=== PATIENT | male | born 1960 | race Caucasian/White ===

== ENCOUNTER 2016-09-13 13:27 | Observation (INO) | payer OTHER ==
[~2016-09-13] VITALS: Ht 180.3 cm; Wt 72.1 kg
[2016-09-13] MEDS: SODIUM CHLOR 0.9% 1000 ML INJ 1,000 ML IV SCH (01:40)
[~2016-09-13 13:27] MED LIST: ONDANSETRON HCL 4 MG/2 ML VIAL IV PUSH ONE; PROPOFOL 200 MG/20 ML AMP IV ONE; ePHEDrine/NS 25 MG/5 ML SYR IV ONE
[2016-09-13 13:28] VITALS: BP 127/65; PULSE 52; RESP 14; TEMP 98.2; O2SAT 100
--- NOTE | 2016-09-13 13:41 | PD ---
Physical Exam Time Seen by Provider: 13:40 Narrative 56 y/o male here for evaluation of L 3rd finger pain swelling which started 3 days ago, seen at [facility] yesterday and told that he may have a " tendon infection" and he was advised to come here to see a hand surgeon. Vital signs reviewed. Seen at triage desk. Awaiting bed placement. Data Data Last Documented VS Vital Signs Date Time Temp Pulse Resp B/P Pulse Ox O2 Delivery O2 Flow Rate FiO2 09/13/16 13:28 98.2 52 14 127/65 100 MDM Medical Record Reviewed: Yes Supervised Visit with MCKENNA: Julián Armenta Sep 13, 2016 13:41
[2016-09-13] MEDS ORDERED: CLIN1CAP6 PO (14:13)
[2016-09-13] MEDS ORDERED: KETO10 PO (14:13)
[2016-09-13] MEDS ORDERED: SODIUM CHLORIDE 0.9% FLUSH 10 ML FLUSH IVF PRN (14:30)
--- NOTE | 2016-09-13 14:33 | PD ---
HPI Chief Complaint: Injury Time Seen by Provider: 14:11 Travel History International Travel<30 days: No Contact w/Intl Traveler<30days: No Traveled to known affect area: No PFSH Past Medical History Medical History: Denies Significant Hx Past Surgical History Tonsillectomy: Yes Social History Alcohol Use: Yes (occ) Tobacco Use: No Allergies-Medications (Allergen,Severity, Reaction): Coded Allergies: No Known Allergies (Unverified , 09/13/16) Reported Meds & Prescriptions Reported Meds & Active Scripts Active Reported Ketorolac (Ketorolac Tromethamine) 10 Mg Tab 10 Mg PO QID PRN Clindamycin (Clindamycin HCl) 300 Mg Cap 300 Mg PO Q6H 10 Days Data Data Last Documented VS Vital Signs Date Time Temp Pulse Resp B/P Pulse Ox O2 Delivery O2 Flow Rate FiO2 09/13/16 14:09 17 09/13/16 13:28 98.2 52 127/65 100 Orders Complete Blood Count With Diff (09/13/16 14:18) Comprehensive Metabolic Panel (09/13/16 14:18) Magnesium (Mg) (09/13/16 14:18) Prothrombin Time / Inr (Pt) (09/13/16 14:18) Act Partial Throm Time (Ptt) (09/13/16 14:18) Troponin I (09/13/16 14:18) Chest, Single Ap (09/13/16 14:18) Ecg Monitoring (09/13/16 14:18) Iv Access Insert/Monitor (09/13/16 14:18) Oximetry (09/13/16 14:18) Oxygen Administration (09/13/16 14:18) Sodium Chloride 0.9% Flush (Ns Flush) (09/13/16 14:30) C-Reactive Protein (Crp) (09/13/16 14:18) Westergren Sedimentation Rate (09/13/16 14:18) Hand, Complete ([id number]) (09/13/16 ) Ken Felix MD Sep 13, 2016 14:33
--- NOTE | 2016-09-13 14:41 | PD ---
HPI Chief Complaint: Injury Time Seen by Provider: 14:11 Travel History International Travel<30 days: No Contact w/Intl Traveler<30days: No Traveled to known affect area: No History of Present Illness HPI Patient 56-year-old male presents emergency department for left long finger swelling and pain. Patient states he was seen at [facility] this morning but since then the pain has began to worsen and now he's having some limitations in flexion. He was told at [facility] that he needs to see a hand surgeon and they recommended transfer to [place] where they have a hand surgeon on-call and he stated he would rather come here. He was discharged on clindamycin and took one dose and then came to our hospital. States it took the pain medicine he was prescribed as well and does not need anything for pain at this time. Denies any fever. Patient states approximately week ago he had a splinter in the distalmost aspect of this finger and it seems festered out of control. PFSH Past Medical History Medical History: Denies Significant Hx Past Surgical History Tonsillectomy: Yes Social History Alcohol Use: Yes (occ) Tobacco Use: No Allergies-Medications (Allergen,Severity, Reaction): Coded Allergies: No Known Allergies (Unverified , 09/13/16) Reported Meds & Prescriptions Reported Meds & Active Scripts Active Reported Ketorolac (Ketorolac Tromethamine) 10 Mg Tab 10 Mg PO QID PRN Clindamycin (Clindamycin HCl) 300 Mg Cap 300 Mg PO Q6H 10 Days Review of Systems Except as stated in HPI: all other systems reviewed are Neg Physical Exam Narrative GENERAL: Well-developed well-nourished no apparent distress SKIN: Focused skin assessment warm/dry. HEAD: Atraumatic. Normocephalic. EYES: Pupils equal and round. No scleral icterus. No injection or drainage. ENT: No nasal bleeding or discharge. Mucous membranes pink and moist. NECK: Trachea midline. No JVD. CARDIOVASCULAR: Regular rate and rhythm. No murmur appreciated. RESPIRATORY: No accessory muscle use. Clear to auscultation. Breath sounds equal bilaterally. GASTROINTESTINAL: Abdomen soft, non-tender, nondistended. Hepatic and splenic margins not palpable. MUSCULOSKELETAL: No obvious deformities. No clubbing. No cyanosis. No edema. Patient's left long finger is held in partial flexion, has circumferential edema and swelling, there is tenderness on the flexor tendon and pain with passive extension. There is no tenderness over the flexor compartment of the forearm, no erythema present. NEUROLOGICAL: Awake and alert. No obvious cranial nerve deficits. Motor grossly within normal limits. Normal speech. PSYCHIATRIC: Appropriate mood and affect; insight and judgment normal. Data Data Last Documented VS Vital Signs Date Time Temp Pulse Resp B/P Pulse Ox O2 Delivery O2 Flow Rate FiO2 09/13/16 14:58 98 Room Air 09/13/16 14:09 17 09/13/16 13:28 98.2 52 127/65 Orders Complete Blood Count With Diff (09/13/16 14:18) Comprehensive Metabolic Panel (09/13/16 14:18) Magnesium (Mg) (09/13/16 14:18) Prothrombin Time / Inr (Pt) (09/13/16 14:18) Act Partial Throm Time (Ptt) (09/13/16 14:18) Troponin I (09/13/16 14:18) Chest, Single Ap (09/13/16 14:18) Ecg Monitoring (09/13/16 14:18) Iv Access Insert/Monitor (09/13/16 14:18) Oximetry (09/13/16 14:18) Oxygen Administration (09/13/16 14:18) Sodium Chloride 0.9% Flush (Ns Flush) (09/13/16 14:30) C-Reactive Protein (Crp) (09/13/16 14:18) Westergren Sedimentation Rate (09/13/16 14:18) Hand, Complete ([id number]) (09/13/16 ) Diet Npo (09/13/16 Dinner) Consult Hand Surgery (09/13/16 ) Consent (09/13/16 15:15) (Hub Use Only)Inp Phy Cons/Ref (09/13/16 ) Vancomycin Inj (Vancomycin Inj) (09/13/16 17:00) Admit Order (Ed Use Only) (09/13/16 ) Labs Laboratory Tests Test 09/13/16 14:53 White Blood Count 9.8 TH/MM3 Red Blood Count 4.71 MIL/MM3 Hemoglobin 15.0 GM/DL Hematocrit 44.1 % Mean Corpuscular Volume 93.6 FL Mean Corpuscular Hemoglobin 31.8 PG Mean Corpuscular Hemoglobin 34.0 % Concent Red Cell Distribution Width 12.9 % Platelet Count 252 TH/MM3 Mean Platelet Volume 9.0 FL Neutrophils (%) (Auto) 71.1 % Lymphocytes (%) (Auto) 15.1 % Monocytes (%) (Auto) 9.8 % Eosinophils (%) (Auto) 3.4 % Basophils (%) (Auto) 0.6 % Neutrophils # (Auto) 6.9 TH/MM3 Lymphocytes # (Auto) 1.5 TH/MM3 Monocytes # (Auto) 1.0 TH/MM3 Eosinophils # (Auto) 0.3 TH/MM3 Basophils # (Auto) 0.1 TH/MM3 CBC Comment DIFF FINAL Differential Comment Erythrocyte Sedimentation Rate 3 mm/hr Prothrombin Time 10.2 SEC Prothromb Time International 0.9 RATIO Ratio Activated Partial 25.9 SEC Thromboplast Time Sodium Level 138 MEQ/L Potassium Level 3.9 MEQ/L Chloride Level 102 MEQ/L Carbon Dioxide Level 29.7 MEQ/L Anion Gap 6 MEQ/L Blood Urea Nitrogen 9 MG/DL Creatinine 0.64 MG/DL Estimat Glomerular Filtration 129 ML/MIN Rate Random Glucose 83 MG/DL Calcium Level 8.9 MG/DL Magnesium Level 2.0 MG/DL Total Bilirubin 1.0 MG/DL Aspartate Amino Transf 17 U/L (AST/SGOT) Alanine Aminotransferase 21 U/L (ALT/SGPT) Alkaline Phosphatase 61 U/L Troponin I LESS THAN 0.02 NG/ML C-Reactive Protein LESS THAN 0.29 MG/DL Total Protein 6.8 GM/DL Albumin 3.8 GM/DL MDM Medical Decision Making Medical Screen Exam Complete: Yes Emergency Medical Condition: Yes Differential Diagnosis Flexor tenosynovitis, cellulitis, abscess, felon. Narrative Course Patient was roomed in the emergency department, has a fair amount of swelling of his left long finger. There is some pain with passive extension as well as pain along the flexor tendon. This could be consistent with flexor tenosynovitis. There is no erythema. His labs are reassuring x-ray shows some soft tissue edema without any other findings. Patient was discussed with Dr. Simons who recommends medical admission and likely operative later today. She will see sometime later this afternoon. Patient was offered pain medicine at several occasions in the emergency department and declined. Patient was given a dose of vancomycin and top of the oral clindamycin to take at home. Will remain nothing by mouth while in the ER. Patient was discussed with Dr. Barrera for admission. Records were obtained from [facility] including his x-ray and basic lab work however no physician documentation is assigned yet and according to the medical records department there there is no ER physician documentation available yet. Diagnosis Primary Impression: Flexor tenosynovitis of finger Admitting Information Admitting Physician Requests: Observation Condition: Stable Ken Felix MD Sep 13, 2016 14:41
[2016-09-13 14:58] VITALS: O2SAT 98
--- NOTE | 2016-09-13 14:58 | RADRPT ---
EXAM DATE/TIME: 09/13/2016 14:32 [facility] COMPARISON: No previous studies available for comparison. 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 Swelling in finger. MEDICAL HISTORY : None. SURGICAL HISTORY : None. ENCOUNTER: Initial ACUITY: 3 days PAIN SCORE: 5/10 LOCATION: Right Hand, 3rd digit. FINDINGS: 3 views of the left hand. Dorsal soft tissue swelling at the long finger proximal interphalangeal moses nt. Bone alignment within normal limits. No evidence of fracture. No radiopaque foreign body identif ied. CONCLUSION: Long finger soft tissue swelling at the PIP joint. No evidence of fracture or radiopaque foreign body . Chriss Valdez MD on September 13, 2016 at 14:55 Board Certified Radiologist. This report was verified electronically.
--- NOTE | 2016-09-13 15:26 | RADRPT ---
EXAM DATE/TIME: 09/13/2016 14:26 [facility] COMPARISON: No previous studies available for comparison. 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 Swelling in finger. MEDICAL HISTORY : None. SURGICAL HISTORY : None. ENCOUNTER: Initial ACUITY: 3 days PAIN SCORE: 0/10 LOCATION: Bilateral chest FINDINGS: A single view of the chest demonstrates the lungs to be symmetrically aerated without evidence of mas s, infiltrate or effusion. The cardiomediastinal contours are unremarkable. Osseous structures are intact. CONCLUSION: 1. No acute cardiopulmonary disease radiographically. David Schafer MD on September 13, 2016 at 15:23 Board Certified Radiologist. This report was verified electronically.
[2016-09-13 15:27] LABS: AUTOMATED NEUTROPHIL # 6.9 TH/MM3 (1.8-7.7); BASOPHIL # 0.1 TH/MM3 (0-0.2); BASOPHIL % 0.6 % (0.0-2.0); EOSINOPHIL # 0.3 TH/MM3 (0-0.4); EOSINOPHIL % 3.4 % (0.0-4.0); HEMATOCRIT 44.1 % (39.0-51.0); HEMO FLAGS DIFF FINAL; LYMPH % 15.1 % (9.0-44.0); LYMPHOCYTE # 1.5 TH/MM3 (1.0-4.8); MEAN CELL VOLUME 93.6 FL (80.0-100.0); MEAN CORPUSCULAR HEMOGLOBIN 31.8 PG (27.0-34.0); MONO % 9.8 % (0.0-8.0); NEUT % 71.1 % (16.0-70.0); PLATELET COUNT 252 TH/MM3 (150-450); RED BLOOD COUNT 4.71 MIL/MM3 (4.50-5.90); RED CELL DISTRIBUTION WIDTH 12.9 % (11.6-17.2); WHITE BLOOD COUNT 9.8 TH/MM3 (4.0-11.0)
[2016-09-13 15:33] LABS: APTT (PATIENT) 25.9 SEC (24.3-30.1); INTERNATIONAL NORMALIZED RATIO 0.9 RATIO; PROTHROMBIN TIME - PATIENT 10.2 SEC (9.8-11.6)
[2016-09-13 16:03] LABS: ANION GAP 6 MEQ/L (5-15); AST (GOT) 17 U/L (15-37); BICARBONATE 29.7 MEQ/L (21.0-32.0); BLOOD UREA NITROGEN 9 MG/DL (7-18); CHLORIDE 102 MEQ/L (98-107); GLOMERULAR FILTRATION RATE 129 ML/MIN (>89); POTASSIUM 3.9 MEQ/L (3.5-5.1); SODIUM (NA) 138 MEQ/L (136-145)
[2016-09-13 16:04] LABS: ALT (GPT) 21 U/L (12-78)
[2016-09-13 16:08] LABS: ALKALINE PHOSPHATASE 61 U/L (45-117)
[2016-09-13] MEDS ORDERED: VANCOMYCIN INJ 1,000 MG in SODIUM CHLOR 0.9% 250 ML INJ 250 ML IV ONE (17:00)
[2016-09-13 17:15] VITALS: BP 118/77; PULSE 52; RESP 16; O2SAT 99
[2016-09-13] MEDS ORDERED: ACETAMINOPHEN 325 MG TAB PO PRN (19:15)
[2016-09-13] MEDS ORDERED: ONDANSETRON HCL 4 MG/2 ML VIAL IV PUSH PRN (19:15)
[2016-09-13] MEDS ORDERED: GENTAMICIN SULFATE 80 MG/2 ML VIAL ONE (21:43)
[2016-09-13] MEDS ORDERED: LIDOCAINE HCL 2% 50 ML VIAL ONE (21:43)
[2016-09-13 23:00] VITALS: PULSE 54
[2016-09-13] MEDS ORDERED: GADODIAMIDE PF 287 MG/ML 5 ML VIAL (for RAD MRI) IV ONE (23:03)
--- NOTE | 2016-09-13 23:11 | RADRPT ---
EXAM DATE/TIME: 09/13/2016 22:19 [facility] COMPARISON: No previous studies available for comparison. INDICATIONS : Abscess. CONTRAST: 14 cc Omniscan (gadodiamide) IV MEDICAL HISTORY : None. SURGICAL HISTORY : Tonsillectomy. ENCOUNTER: Subsequent ACUITY: 1 week PAIN SCORE: 5/10 LOCATION: Left hand TECHNIQUE: Multiplanar, multisequence MRI examination was performed without contrast and after the intravenous a dministration of gadolinium. FINDINGS: There is slight edema involving the volar aspect of the third digit in the region of the middle phalanx with slight edema surrounding the flexor tendons at the site and adjacent soft tissues. There is slight area of abnormal signal involving the third distal metacarpal bone probably chronic in sumanth ure. No definite abscess is identified. CONCLUSION: No evidence for abscess and slight inflammation involving the flexor tendons of the third digit at th e level of the middle phalanx and adjacent soft tissues. Holden Taylor MD on September 13, 2016 at 23:06 Board Certified Radiologist. This report was verified electronically.
[2016-09-13] MEDS ORDERED: NEOMYCIN/POLYMYXIN 1 ML G.U. IRRIGANT TOPICAL ONE (23:57)
[2016-09-14] VITALS (7 sets, daily range): BP systolic 103–150; BP diastolic 65–80; PULSE 51–60; RESP 16–18; TEMP 95.8–96.8; O2SAT 97–99
[2016-09-14] MEDS ORDERED: ceFAZolin INJ 1,000 MG VIAL IV ONE (00:02)
--- NOTE | 2016-09-14 01:59 | PD.ORT.PN ---
Subjective Subjective Remarks Patient reports pain controlled Objective Vitals Vital Signs Date Time Temp Pulse Resp B/P Pulse Ox O2 Delivery O2 Flow Rate FiO2 09/13/16 23:00 54 09/13/16 23:00 98.2 54 15 128/88 99 09/13/16 17:15 52 16 118/77 99 Room Air 09/13/16 14:58 98 Room Air 09/13/16 14:58 98 Room Air 09/13/16 14:09 17 09/13/16 13:28 98.2 52 14 127/65 100 Result Diagram: 09/13/16 1453 09/13/16 1453 Other Results Laboratory Tests Test 09/13/16 14:53 Prothrombin Time 10.2 SEC (9.8-11.6) Prothromb Time International 0.9 RATIO Ratio Imaging Last 24 hours Impressions Chest X-Ray 09/13/16 1418 Signed Impressions: Service Date/Time: Tuesday, September 13, 2016 14:26 - CONCLUSION: 1. No acute cardiopulmonary disease radiographically. David Schafer MD Objective Remarks Dressing in place, <2 sec capillary refill left middle finger, able to fire fdp/ fds, extensors Assessment & Plan Assessment and Plan 56yM POD0 s/p I&D flexor tendon sheath left middle finger with A1 jonathan release -Follow cultures, cloudy fluid along flexor tendon sheath, likely continue IV Ab through Sun and possible d/c on Friday with possible followup in office on Friday -Elevate left hand, gentle ROM left middle finger -will continue to follow Jeni Simons MD Sep 14, 2016 01:59
[2016-09-14] MEDS: ACETAMINOPHEN/HYDROcodone 325 MG/7.5 MG TAB PO PRN ×5 (02:26→23:30)
[2016-09-14] MEDS ORDERED: BACITRACIN OINT 0.9 GM PKT TOPICAL SCH (06:00)
[2016-09-14] MEDS: SODIUM CHLOR 0.9% 1000 ML INJ 1,000 ML IV SCH (08:55)
--- NOTE | 2016-09-14 10:53 | HHI.HP ---
HPI Service [facility] Hospitalists Primary Care Physician Anton Valdez MD Admission Diagnosis Flexor Tenosynovitis Chief Complaint: swelling of finger Travel History International Travel<30 Days: No Contact w/Intl Traveler <30 Da: No Traveled to Known Affected Are: No History of Present Illness Pt is 56 yo with no significant pmh who injured his left middle finger about 1 week ago. He was working on an old "[employer] truck" when he scraped his finger on a floorboard metal post that had sharp edge. over the week the finger became more swollen and "sausage shape". he had pain into the forearm but no red streaking and no f/c. Went to [facility] yesterday and given "2 bags of antibiotics". they had no hand surgeon and gave him a script for clinda which he took one dose. Then he came her last night. mri showed swelling of the flexor tendon. Taken to OR and had cloudy fluid near flexor tendon drained and sent for cx. vancomycin given in ED Review of Systems Other left middle finger swelling Past Family Social History Past Medical History negative Past Surgical History negative Reported Medications Reported Meds & Active Scripts Active Reported Ketorolac (Ketorolac Tromethamine) 10 Mg Tab 10 Mg PO QID PRN Clindamycin (Clindamycin HCl) 300 Mg Cap 300 Mg PO Q6H 10 Days Allergies: Coded Allergies: No Known Allergies (Unverified , 09/13/16) Family History nc Social History no tob rare etoh Physical Exam Vital Signs heent neg heart reg lung cta abd s/nt ext let hand heavily bandaged over middle finger/hand Vital Signs Date Time Temp Pulse Resp B/P Pulse Ox O2 Delivery O2 Flow Rate FiO2 09/14/16 09:12 98 21 09/14/16 08:00 95.8 51 18 113/69 98 09/14/16 02:35 96.8 53 17 150/80 98 09/14/16 02:00 97.6 52 24 144/87 99 Room Air 09/14/16 01:45 54 21 146/82 99 Room Air 09/14/16 01:30 60 20 142/94 100 Nasal Cannula 2 09/14/16 01:18 97.5 60 14 145/81 100 Nasal Cannula 2 09/13/16 23:00 54 09/13/16 23:00 98.2 54 15 128/88 99 09/13/16 17:15 52 16 118/77 99 Room Air 09/13/16 14:58 98 Room Air 09/13/16 14:58 98 Room Air 09/13/16 14:09 17 09/13/16 13:28 98.2 52 14 127/65 100 Laboratory Laboratory Tests Test 09/13/16 14:53 White Blood Count 9.8 Red Blood Count 4.71 Hemoglobin 15.0 Hematocrit 44.1 Mean Corpuscular Volume 93.6 Mean Corpuscular Hemoglobin 31.8 Mean Corpuscular Hemoglobin 34.0 Concent Red Cell Distribution Width 12.9 Platelet Count 252 Mean Platelet Volume 9.0 Neutrophils (%) (Auto) 71.1 Lymphocytes (%) (Auto) 15.1 Monocytes (%) (Auto) 9.8 Eosinophils (%) (Auto) 3.4 Basophils (%) (Auto) 0.6 Neutrophils # (Auto) 6.9 Lymphocytes # (Auto) 1.5 Monocytes # (Auto) 1.0 Eosinophils # (Auto) 0.3 Basophils # (Auto) 0.1 CBC Comment DIFF FINAL Differential Comment Erythrocyte Sedimentation Rate 3 Prothrombin Time 10.2 Prothromb Time International 0.9 Ratio Activated Partial 25.9 Thromboplast Time Sodium Level 138 Potassium Level 3.9 Chloride Level 102 Carbon Dioxide Level 29.7 Anion Gap 6 Blood Urea Nitrogen 9 Creatinine 0.64 Estimat Glomerular Filtration 129 Rate Random Glucose 83 Calcium Level 8.9 Magnesium Level 2.0 Total Bilirubin 1.0 Aspartate Amino Transf 17 (AST/SGOT) Alanine Aminotransferase 21 (ALT/SGPT) Alkaline Phosphatase 61 Troponin I LESS THAN 0.02 C-Reactive Protein LESS THAN 0.29 Total Protein 6.8 Albumin 3.8 Date/Time Procedure Status Source Growth 09/14/16 00:10 Gram Stain - Final Resulted Abscess Finger 09/14/16 00:10 Wound Culture Resulted Abscess Finger Pending 09/14/16 00:10 Fungal Smear - Final Resulted Abscess Finger NO FUNGAL ELEMENTS SEEN. 09/14/16 00:10 Fungal Culture Resulted Abscess Finger Pending 09/14/16 00:10 Acid Fast Stain Received Abscess Finger Pending 09/14/16 00:10 Mycobacterial Culture Received Abscess Finger Pending Result Diagram: 09/13/16 1453 09/13/16 1453 Assessment and Plan Problem List: (1) Flexor tenosynovitis of finger Status: Acute Plan: left hand 3rd finger injury while working on truck. 1 week ago presents to ED with swelling and found to have tenosynovitis. Taken to OR for drainage of cloudy fluid given iv abx [facility] yesterday and then po clinda. vanco in ED yesterday pain control d/c when ok with plastic surgery..who consulted ID for abx opinion. will defer choice to them...f/u cx. pain script on chart. Royce Barrera MD Sep 14, 2016 10:53
[2016-09-14] MEDS ORDERED: HYDR-3580 PO (10:58)
--- NOTE | 2016-09-14 12:33 | MB ---
cc: TIBURCIO LIVINGSTON DATE OF CONSULTATION: 09/13/2016 REASON FOR CONSULTATION Pain and swelling of left middle finger. 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 He cleaned the area but did not have significant concern. He states that approximately [id number] days ago he noted pain and swelling over the left middle finger. He taped the finger and continued to work. He presented to [facility] this morning around 04:30 a.m. after he was awoken from sleep with significant pain and swelling to the left middle finger. He was given one dose of IV antibiotics and discharged as the hospital, did not have a hand surgeon. He presented to [facility] around approximately 02:00 p.m. He denies any prior significant problems with the left hand. He is right-hand dominant. He denies any paresthesias. I was called around approximately 03:30 p.m. and planned to take the patient to the operating room around 04:30 p.m. but due to multiple traumas the case was delayed. In the interval, the patient reports he had significant improvement after the IV antibiotics with significant improvement in his pain and swelling, but he still did have some stiffness over the finger. At that time, I recommended an MRI be obtained as the patient did have significant improvement on the IV antibiotics to aid in determining whether to continue on IV antibiotics or proceed with surgical intervention. PAST MEDICAL HISTORY Denies. PAST SURGICAL HISTORY Tonsillectomy. SOCIAL HISTORY Reports social alcohol use. Denies tobacco or drug use. Again, works as a tennis pro. ALLERGIES NO KNOWN DRUG ALLERGIES. MEDICATIONS The patient takes no medications baseline. He states that since this morning he was given a prescription for clindamycin and ketoralac. PHYSICAL EXAMINATION GENERAL: The patient is alert and oriented. Exam of the left middle finger shows a mild amount of erythema over the distal phalanx of the left middle finger. Function is intact of FDS and FDP. The patient does not have a sausage digit and does not have significant pain with extension of the left middle finger. He does have moderate swelling to the middle finger most significant at the level of the PIP joint and middle phalanx. He does have mild pain with palpation on the volar aspect of the middle phalanx. There is not significant tenderness in the palm. He is unable to make a full fist, lacks approximately a half cm from the distal palmar crease. Sensation is intact on the radial and ulnar side. He has less than 2 second capillary refill to the finger. No evidence of purulence and there is a healed area where the laceration was located. The patient does have some cracking skin over the finger. LABORATORY DATA White count 9.8. ESR 3. CRP 0.29. IMAGING STUDIES X-rays reviewed and showed soft tissue swelling but no evidence of fracture dislocation or metallic retained foreign body. ASSESSMENT AND PLAN A 56-year-old right-hand dominant male approximately ten days after a laceration to the distal phalanx of the left middle finger. Now with approximately three days of pain and swelling over the left middle finger prompting evaluation early this morning in an outside hospital. Now the patient reports significant improvement on the IV antibiotics. I had a long discussion with the patient and his significant other about treatment options including continued observation on IV antibiotics versus possible MRI versus surgical intervention. At the time of evaluation, the patient elected to proceed with MRI. This was then reviewed. MRI showed a moderate amount of fluid on the dorsum of the left middle finger, middle phalanx as well as along the flexor tendon sheath extending from the distal phalanx into the palm. This was reviewed with the patient and the radiologist. At this time, the patient did request surgical intervention. He understands that the tenosynovitis may resolve on IV antibiotics. With surgical intervention, the advantage is obtaining a culture and debriding the flexor tendon sheath. The disadvantage is significant pain over the palm due to the incision and he would have to likely be off work for [id number] weeks. The patient understands the disadvantage of being on IV antibiotics is that he still may require surgical intervention and a culture may not grow any bacteria. Again, the patient elected to proceed with surgical intervention. The risks were explained to include wound complications, infection, stiffness, pain, paresthesias, need for additional surgery and he elected to proceed. This was done at the earliest available time in the operating room due to the significant traumas today. The patient will remain in the hospital on IV antibiotics, and likely we will consult Infectious Disease depending on the intraoperative findings. MD SANDRA Mackenzie/ROCKY /2:09 AM /12:08 PM [facility]
[2016-09-14] MEDS: VANCOMYCIN INJ 1,000 MG in SODIUM CHLOR 0.9% 250 ML INJ 250 ML IV SCH ×2 (12:51→23:30)
--- NOTE | 2016-09-14 14:30 | PD.ID.CON ---
History of Present Illness Service Infectious disease Consult Requested By Dr. Jeni Simons Reason for Consult Evaluation and management of left third middle finger tenosynovitis likely infectious. Primary Care Physician Anton Valdez MD Diagnoses: History of Present Illness Mr. 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 Patient reports that approximately 10 days prior to admission when he was detailing his car he sustained a small laceration on the distal phalanx of the left middle finger from a metal piece of the car. He cleaned the area but did not think he was of much significance. He continued local wound care and the skin incision eventually closed but the finger became hard indurated warm and describes it as a sausage. He also describes and a feeling of numbness in his fingertip as well as pain in his arm at some point. He taped his finger and continued to work. He then presented to [facility] where he was given an IV antibiotic and then finally discharged on clindamycin oral. Patient reports that since they don't have a hand surgeon at [facility] he was asked to come to [facility]. Patient reports that he only took one dose of clindamycin oral prior to presentation at [facility]. His hand continues to worsen and so infectious disease as well as hand surgery were consulted. Dr. Simons perform surgery and it appears that along the tendon of the left third middle finger there was purulence noted suggestive of tenosynovitis. Intra-Op cultures have been sent for bacterial, fungal as well as AFB cultures which are pending at the present time and so far negative. Patient has been started on vancomycin IV and currently his hand is in the postoperative dressing. Review of Systems Constitutional: DENIES: Diaphoretic episodes, Fatigue, Fever, Weight gain, Weight loss, Chills, Dizziness, Change in appetite, Night Sweats Endocrine: DENIES: Heat/cold intolerance, Polydipsia, Polyuria, Polyphagia Eyes: DENIES: Blurred vision, Diplopia, Eye inflammation, Eye pain, Vision loss , Photosensitivity, Double Vision Ears, nose, mouth, throat: DENIES: Tinnitus, Hearing loss, Vertigo, Nasal discharge, Oral lesions, Throat pain, Hoarseness, Ear Pain, Running Nose, Epistaxis, Sinus Pain, Toothache, Odynophagia Respiratory: DENIES: Apneas, Cough, Snoring, Wheezing, Hemoptysis, Sputum production, Shortness of breath Cardiovascular: DENIES: Chest pain, Palpitations, Syncope, Dyspnea on Exertion , PND, Lower Extremity Edema, Orthopnea, Claudication Gastrointestinal: DENIES: Abdominal pain, Black stools, Bloody stools, Constipation, Diarrhea, Nausea, Vomiting, Difficulty Swallowing, Anorexia Genitourinary: DENIES: Sexual dysfunction, Urinary frequency, Urinary incontinence, Urgency, Hematuria, Dysuria, Nocturia, Penile Discharge, Testicular Pain, Testicular Swelling Musculoskeletal: COMPLAINS OF: Joint pain, DENIES: Muscle aches, Stiffness, Joint Swelling, Back pain, Neck pain Integumentary: DENIES: Abnormal pigmentation, Nail changes, Pruritus, Rash Hematologic/lymphatic: DENIES: Bruising, Lymphadenopathy Immunologic/allergic: DENIES: Eczema, Urticaria Neurologic: DENIES: Abnormal gait, Headache, Localized weakness, Paresthesias, Seizures, Speech Problems, Tremor, Poor Balance Psychiatric: DENIES: Anxiety, Confusion, Mood changes, Depression, Hallucinations, Agitation, Suicidal Ideation, Homicidal Ideation, Delusions Except as stated in HPI: all other systems reviewed are Neg Past Family Social History Allergies: Coded Allergies: No Known Allergies (Unverified , 09/13/16) Past Medical History None Past Surgical History Tonsillectomy Reported Medications Reported Meds & Active Scripts Active Hydrocodone-Acetaminophen 7.5-325 mg Tab 1 Tab PO Q4H PRN Reported Ketorolac (Ketorolac Tromethamine) 10 Mg Tab 10 Mg PO QID PRN Clindamycin (Clindamycin HCl) 300 Mg Cap 300 Mg PO Q6H 10 Days Active Ordered Medications Current Medications Medications (Trade) Dose Ordered Sig/Arsenio Route Start Time Stop Time Status Last Admin (NS Flush) 2 ml UNSCH PRN IVF 09/13/16 14:30 09/13/16 23:20 ([place] 7.5-325 Mg) 1 tab Q4H PRN PO 09/13/16 19:15 09/14/16 14:11 (Zofran Inj) 4 mg Q6H PRN IV PUSH 09/13/16 19:15 Acetaminophen 650 mg 650 mg Q4H PRN PO 09/13/16 19:15 Sodium Chloride 1,000 ml @ 84 mls/hr [id number] IV 09/13/16 21:00 09/13/16 01:40 (Vancomycin Inj/ NS 250 ml Inj) 250 ml @ 250 mls/hr Q12H IV 09/14/16 12:00 09/14/16 12:51 Family History Reviewed and noncontributory to current ID problem. Social History Reports social alcohol use. Denies tobacco or drug use. Again, works as a tennis pro. Physical Exam Vital Signs Vital Signs Date Time Temp Pulse Resp B/P Pulse Ox O2 Delivery O2 Flow Rate FiO2 09/14/16 12:00 96.5 54 18 118/70 99 09/14/16 09:12 98 21 09/14/16 08:00 95.8 51 18 113/69 98 09/14/16 02:35 96.8 53 17 150/80 98 09/14/16 02:00 97.6 52 24 144/87 99 Room Air 09/14/16 01:45 54 21 146/82 99 Room Air 09/14/16 01:30 60 20 142/94 100 Nasal Cannula 2 09/14/16 01:18 97.5 60 14 145/81 100 Nasal Cannula 2 09/13/16 23:00 54 09/13/16 23:00 98.2 54 15 128/88 99 09/13/16 17:15 52 16 118/77 99 Room Air 09/13/16 14:58 98 Room Air 09/13/16 14:58 98 Room Air Physical Exam GENERAL: This is a well-nourished, well-developed patient, in no apparent distress. SKIN: No rashes, ecchymoses or lesions. Cool and dry. HEAD: Atraumatic. Normocephalic. No temporal or scalp tenderness. EYES: Pupils equal round and reactive. Extraocular motions intact. No scleral icterus. No injection or drainage. ENT: Nose without bleeding, purulent drainage or septal hematoma. Throat without erythema, tonsillar hypertrophy or exudate. Uvula midline. Airway patent. NECK: Trachea midline. Supple, nontender, no meningeal signs. CARDIOVASCULAR: Regular rate and rhythm without murmurs, gallops, or rubs. RESPIRATORY: Clear to auscultation. Breath sounds equal bilaterally. No wheezes , rales, or rhonchi. GASTROINTESTINAL: Abdomen soft, non-tender, nondistended. MUSCULOSKELETAL: Extremities without clubbing, cyanosis, or edema. No joint tenderness, effusion, or edema noted. No calf tenderness. Negative Homans sign bilaterally. NEUROLOGICAL: Awake and alert. Grossly nonfocal. Psych cooperative IV line sites with no evidence Laboratory Laboratory Tests Test 09/13/16 14:53 White Blood Count 9.8 Red Blood Count 4.71 Hemoglobin 15.0 Hematocrit 44.1 Mean Corpuscular Volume 93.6 Mean Corpuscular Hemoglobin 31.8 Mean Corpuscular Hemoglobin 34.0 Concent Red Cell Distribution Width 12.9 Platelet Count 252 Mean Platelet Volume 9.0 Neutrophils (%) (Auto) 71.1 Lymphocytes (%) (Auto) 15.1 Monocytes (%) (Auto) 9.8 Eosinophils (%) (Auto) 3.4 Basophils (%) (Auto) 0.6 Neutrophils # (Auto) 6.9 Lymphocytes # (Auto) 1.5 Monocytes # (Auto) 1.0 Eosinophils # (Auto) 0.3 Basophils # (Auto) 0.1 CBC Comment DIFF FINAL Differential Comment Erythrocyte Sedimentation Rate 3 Prothrombin Time 10.2 Prothromb Time International 0.9 Ratio Activated Partial 25.9 Thromboplast Time Sodium Level 138 Potassium Level 3.9 Chloride Level 102 Carbon Dioxide Level 29.7 Anion Gap 6 Blood Urea Nitrogen 9 Creatinine 0.64 Estimat Glomerular Filtration 129 Rate Random Glucose 83 Calcium Level 8.9 Magnesium Level 2.0 Total Bilirubin 1.0 Aspartate Amino Transf 17 (AST/SGOT) Alanine Aminotransferase 21 (ALT/SGPT) Alkaline Phosphatase 61 Troponin I LESS THAN 0.02 C-Reactive Protein LESS THAN 0.29 Total Protein 6.8 Albumin 3.8 Date/Time Procedure Status Source Growth 09/14/16 00:10 Gram Stain - Final Resulted Abscess Finger 09/14/16 00:10 Wound Culture Resulted Abscess Finger Pending 09/14/16 00:10 Fungal Smear - Final Resulted Abscess Finger NO FUNGAL ELEMENTS SEEN. 09/14/16 00:10 Fungal Culture Resulted Abscess Finger Pending 09/14/16 00:10 Acid Fast Stain Received Abscess Finger Pending 09/14/16 00:10 Mycobacterial Culture Received Abscess Finger Pending Result Diagram: 09/13/16 1453 09/13/16 1453 Imaging Last Impressions Chest X-Ray 09/13/16 1418 Signed Impressions: Service Date/Time: Tuesday, September 13, 2016 14:26 - CONCLUSION: 1. No acute cardiopulmonary disease radiographically. David Schafer MD Hand X-Ray 09/13/16 0000 Signed Impressions: Service Date/Time: Tuesday, September 13, 2016 14:32 - CONCLUSION: Long finger soft tissue swelling at the PIP joint. No evidence of fracture or radiopaque foreign body. Chriss Valdez MD Hand MRI 09/13/16 0000 Signed Impressions: Service Date/Time: Tuesday, September 13, 2016 22:19 - CONCLUSION: No evidence for abscess and slight inflammation involving the flexor tendons of the third digit at the level of the middle phalanx and adjacent soft tissues. Holden Taylor MD Assessment and Plan Assessment and Plan left middle finger tenosynovitis. Recs Continue Vanco IV (target 10-15) Follow cultures Follow clinically. d/w patient and spouse that even if cultures negative will treat as bacterial infection likely with oral regimen. I would not consider clinda a failure as he did not get sufficient course and patient needed source control. I also discussed that AFB and Fungal cultures take up to 6 weeks to be finalized and if positive can alter treatment at any point. Will follow prn over the weekend. Please call me if cultures final negative or if any organism to assess adequacy of regimen. Shilpa De Luna MD Sep 14, 2016 14:29
--- NOTE | 2016-09-14 21:17 | MP ---
cc: TIBURCIO SIMONS DATE OF SURGERY 09/13/2016 PREOPERATIVE DIAGNOSIS Concern for flexor tenosynovitis left middle finger. POSTOPERATIVE DIAGNOSIS Flexor tenosynovitis left middle finger. PROCEDURE 1. Irrigation debridement flexor tendon sheath left middle finger. 2. A1 jonathan release left middle finger. SURGEON Dr. 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 He states that over the past 3-4 days he has had increasing pain and swelling of the left middle finger which prompted him to present to an outside emergency room at 4:30 this morning. He states at that time he had minimal range of motion of the finger and significant swelling along the finger into the palm. He does report significant improvement today in the emergency room on IV antibiotics. I had a long discussion with the patient about treatment options including continued observation on IV antibiotics overnight versus surgical intervention. After MRI, he elected to proceed with surgical intervention. Risks were explained but not limited to sepsis, wound complications, infection, pain, paresthesias, need for additional surgeries and he elected to proceed. DESCRIPTION OF PROCEDURE The patient was identified in the preoperative holding area and the correct extremity was marked. The patient was taken to the operating room, anesthesia was induced. Left upper extremity was prepped and draped in normal sterile fashion. Tourniquet was inflated to 225 mmHg for 39 minutes. An oblique incision was made over the A1 jonathan of the left middle finger. Upon doing this, I encountered cloudy fluid which was sent for culture. A separate incision was made in a [place] fashion from the mid portion of the middle phalanx over the radial border of the distal phalanx to include the area of the prior laceration. Upon doing this, I encountered cloudy fluid along the flexor tendon sheath which was sent for a separate culture. Care was taken to protect the digital nerves and digital arteries. Four liters of antibiotic saline was irrigated through the flexor tendon sheath using a combination of cysto tubing as well as a pediatric feeding tube to irrigate the flexor tendon sheath. Prior to irrigation, the decision was made to perform an A1 jonathan release over the left middle finger to allow for full irrigation of the flexor tendon sheath. This was performed with care taken protect the flexor tendons as well as digital nerves and digital arteries. A small incision was made over the dorsum of the middle phalanx just distal to the PIP joint as the MRI showed the fluid collection here and again this area was irrigated with antibiotic saline. Tourniquet was released. Hemostasis was obtained. There was less than 2-second capillary refill to the finger. Approximately 10 mL of 2% lidocaine with no epinephrine was used to perform local anesthesia over the finger. The wound was closed loosely with simple chromic sutures and a soft dressing was placed. The patient will remain admitted for IV antibiotics. He will continue with gentle range of motion. He will likely be in the hospital for several days and we will follow the cultures. He understands he may require [id number] weeks off of work as a tennis pro. MD SANDRA Mackenzie/ /2:15 AM /9:05 PM LUCRECIA
[2016-09-15 03:55] VITALS: BP 114/57; PULSE 51; RESP 16; TEMP 96.5; O2SAT 94
[2016-09-15 08:00] VITALS: BP 112/68; PULSE 59; RESP 18; TEMP 96.7; O2SAT 96
[2016-09-15] MEDS: SODIUM CHLOR 0.9% 1000 ML INJ 1,000 ML IV SCH (08:28)
[2016-09-15 09:22] VITALS: O2SAT 96
[2016-09-15] MEDS ORDERED: MUPI2OIN TOPICAL (10:59)
--- NOTE | 2016-09-15 11:01 | HHI.DCPOC ---
Discharge Care Plan Diagnosis: (1) Flexor tenosynovitis of finger (2) Tick bite Goals to Promote Your Health * To prevent worsening of your condition and complications * To maintain your health at the optimal level Directions to Meet Your Goals Take your medications as prescribed Follow your dietary instruction Follow activity as directed Keep your appointments as scheduled Take your immunizations and boosters as scheduled If your symptoms worsen call your PCP, if no PCP go to Urgent Care Center or Emergency Room Smoking is Dangerous to Your Health. Avoid second hand smoke Call the 24-hour hour crisis hotline for domestic abuse at Royce Barrera MD Sep 15, 2016 11:01
[2016-09-15] MEDS ORDERED: DOXY100C PO (11:04)
[2016-09-15] MEDS: VANCOMYCIN INJ 1,000 MG in SODIUM CHLOR 0.9% 250 ML INJ 250 ML IV SCH (11:15)
--- NOTE | 2016-09-15 11:15 | HHI.PR ---
Subjective Remarks pointed out tick bite on right lat morgan Objective Vitals heart reg lung cta abd s/nt ext right lat morgan..crusted sore..clear drainage with minimal surrounding redness Vital Signs Date Time Temp Pulse Resp B/P Pulse Ox O2 Delivery O2 Flow Rate FiO2 09/15/16 09:22 96 21 09/15/16 08:00 96.7 59 18 112/68 96 09/15/16 03:55 96.5 51 16 114/57 94 09/14/16 23:55 96.7 58 16 103/65 97 09/14/16 20:55 96.4 60 17 104/73 98 09/14/16 16:00 96.7 54 18 121/72 98 09/14/16 12:00 96.5 54 18 118/70 99 09/14/16 09/14/16 09/15/16 14:59 22:59 06:59 Intake Total 960 ml 700 ml 240 ml Balance 960 ml 700 ml 240 ml Intake Oral 960 ml 700 ml 240 ml # Voids 1 1 2 # Bowel Movements 1 0 0 Result Diagram: 09/13/16 1453 09/13/16 1453 A/P Problem List: (1) Flexor tenosynovitis of finger Status: Acute Plan: left hand 3rd finger injury while working on truck. 1 week ago presents to ED with swelling and found to have tenosynovitis. Taken to OR for drainage of cloudy fluid given iv abx [facility] and then po clinda. vanco in ED on arrival here pain control on vancomycin seen by ID cx's pending Pt eager for d/c If cleared for d/c today by Dr Simons..then cont po abx and f/u in office and adjust abx an needed. Pt had right morgan [place] tick bite wound. discussed with ID and we can just d/c the clinda and use doxy for both at moment..unless cx positive. will add topical abx also. pain script on chart. (2) Tick bite Status: Acute Plan: see above Royce Barrera MD Sep 15, 2016 11:15
[2016-09-15] MEDS: ACETAMINOPHEN/HYDROcodone 325 MG/7.5 MG TAB PO PRN (11:23)
--- NOTE | 2016-09-15 11:52 | PD.ORT.PN ---
Subjective Subjective Remarks Patient reports pain controlled. Denies paresthesias. Objective Vitals Vital Signs Date Time Temp Pulse Resp B/P Pulse Ox O2 Delivery O2 Flow Rate FiO2 09/15/16 09:22 96 21 09/15/16 08:00 96.7 59 18 112/68 96 09/15/16 03:55 96.5 51 16 114/57 94 09/14/16 23:55 96.7 58 16 103/65 97 09/14/16 20:55 96.4 60 17 104/73 98 09/14/16 16:00 96.7 54 18 121/72 98 09/14/16 12:00 96.5 54 18 118/70 99 I/O 09/14/16 09/14/16 09/14/16 09/15/16 09/15/16 09/15/16 07:00 15:00 23:00 07:00 15:00 23:00 Intake Total 840 ml 960 ml 700 ml 240 ml Output Total 5 ml Balance 835 ml 960 ml 700 ml 240 ml Intake Oral 240 ml 960 ml 700 ml 240 ml IV Total 200 ml Other 400 ml Output Urine Total 0 ml Estimated Blood Loss 5 ml Other 0 ml # Voids 1 1 1 2 # Bowel Movements 0 1 0 0 Result Diagram: 09/13/16 1453 09/13/16 1453 Imaging Last 24 hours Impressions Chest X-Ray 09/13/16 1418 Signed Impressions: Service Date/Time: Tuesday, September 13, 2016 14:26 - CONCLUSION: 1. No acute cardiopulmonary disease radiographically. David Schafer MD Objective Remarks Dressing changed, sensation intact radial and ulnar sides, <2 sec capillary refill, function intact fds/fdp, unable to make full fist Assessment & Plan Assessment and Plan 56yM POD2 s/p I&D flexor tendon sheath left middle finger with A1 jonathan release -Follow cultures, cloudy fluid along flexor tendon sheath, cultures prelim negative, discussed with Dr De Luna of infectious disease, recommend d/c on doxycycline and followup tomorrow in office with me and possibly followup with Dr Coppola infectious disease as outpatient -Elevate left hand, gentle ROM left middle finger -patient educated to keep hand clean and dry and avoid cleaning the car and playing tennis this week Jeni Simons MD Sep 15, 2016 11:52
[2016-09-15] MEDS: MUPIROCIN 2% OINT 22 GM TUBE TOPICAL SCH ×2 (11:55→14:04)
[2016-09-15 12:04] VITALS: BP 115/66; PULSE 60; RESP 18; TEMP 96.2; O2SAT 99
== END 2016-09-15 16:17 | disposition home or self-care (01) ==
LOC: NEPD 13:27 → NEDA 17:01 → N06B 09-14 02:07
PROVIDERS: ADMIT Hospitalist; ATTEND Hospitalist
DX: M65.842 Other synovitis and tenosynovitis, left hand (principal); S80.861A Insect bite (nonvenomous), right lower leg, initial encounter; W57.XXXA Bitten or stung by nonvenomous insect and other nonvenomous arthropods, initial encounter
CPT/HCPCS: 01810; 26055; 71010; 73130; 73220; 80053; 83735; 84484; 85025; 85610; 85652; 85730; 86140; 86403; 87015; 87070; 87102; 87116; 87205; 87206; 99285; A9579; G0378; J0690; J1580; J2405; J3010; J3370; J7030; J7050